=== PATIENT | male | born 1990 | race Caucasian/White ===

== ENCOUNTER → 2016-12-18 12:28 | Emergency (ER) | payer BC ==
[~2016-12-18 12:28] MED LIST: Silver Sulfadiazine 1%* 20 GM TOPICAL ONE; Tetan/Diph/Pertus SYR(Tdap)* 0.5 ML SYR(BOOSTRIX) use SYR IM ONE
[2016-12-18 13:09] VITALS: BP 148/88
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
== END | disposition home or self-care (01) ==
LOC: ED 12:28
DX: T22.012A Burn of unspecified degree of left forearm, initial encounter (principal); M79.602 Pain in left arm; X12.XXXA Contact with other hot fluids, initial encounter; Y93.9 Activity, unspecified; Y92.9 Unspecified place or not applicable
CPT/HCPCS: 90715; 99282; A9270-GY

== ENCOUNTER 2017-10-13 21:32 | Emergency (ER) | payer BC, OTHER ==
[2017-10-13 21:40] VITALS: BP 119/75
[2017-10-13] MEDS ORDERED: DOXYcycline CAP(*) 100 MG PO ONE (22:23)
--- NOTE | 2017-10-13 22:23 | UC ---
Skin Complaint HPI - HPI Summary HPI Summary: 27 y/o male presents to the urgent care c/o tick bite in his Rt lower abdomen this afternoon about 6 hrs ago. Pt reports he removed the tick, but he doesn't know how long the tick has been on his abdomen. Mild redness around the tick bite. Pt denies fever, CRAWFORD, SOB, chest pain, abdominal pain, joint pain, N/V/D. - History of Current Complaint Chief Complaint: UCSkin Time Seen by Provider: 10/13/17 22:09 Stated Complaint: TICK BITE Hx Obtained From: Patient Onset/Duration: Sudden Onset, Lasting Hours - 6 hrs ago Skin Exposure Onset/Duration: Hours Ago - 6hrs ago Onset Severity: Mild Current Severity: Mild Pain Intensity: 0 Pain Scale Used: 0-10 Numeric Location: Discrete - Rt lower adomen w/ tick bite Character: Redness Aggravating Factor(s): Touch Alleviating Factor(s): Other - remove tick Associated Signs & Symptoms: Positive: Rash. Negative: Fever, Chills, Tenderness Related History: Possible Reaction to: Insect - Allergy/Home Medications Allergies/Adverse Reactions: Allergies Allergy/AdvReac Type Severity Reaction Status Date / Time Penicillins Allergy Unknown Verified 10/13/17 21:41 Reaction Details Home Medications: Home Medications NK [No Home Medications Reported] 10/13/17 [History Confirmed 10/13/17] Review of Systems Constitutional: Negative Skin: Rash - Rt lower abdomen w/ tick bite Eyes: Negative ENT: Negative Respiratory: Negative Cardiovascular: Negative Gastrointestinal: Negative Genitourinary: Negative Motor: Negative Neurovascular: Negative Musculoskeletal: Negative Neurological: Negative Psychological: Negative Is Patient Immunocompromised?: No All Other Systems Reviewed And Are Negative: Yes PMH/Surg Hx/FS Hx/Imm Hx Previously Healthy: Yes - Pt denies PMHX - Surgical History Surgical History: None - Family History Known Family History: Positive: Hypertension - grandmother Family History: [place] (grandfather) - Social History Occupation: Employed Full-time Lives: With Family Alcohol Use: Occasionally Substance Use Type: None Smoking Status (MU): Never Smoked Tobacco Type: Smokeless Tobacco Amount Used/How Often: 1 can per day - Immunization History Most Recent Tetanus Shot: not sure Physical Exam - Summary Physical Exam Summary: Vital Signs Reviewed: Yes General: well developed, well nourished male sitting in the examining table w/o any apparent distress. Eyes: Positive: Conjunctiva Clear - PERRLA, EOMI ENT: Positive: Normal ENT inspection, Hearing grossly normal, Pharynx normal, TMs normal Neck: Positive: Supple, Nontender, No Lymphadenopathy Respiratory: Positive: Chest nontender, Lungs clear, Normal breath sounds Cardiovascular: Positive: RRR, No Murmur, Pulses Normal Abdomen Description: Positive: Nontender, No Organomegaly, Soft. Negative: CVA Tenderness (R), CVA Tenderness (L) Bowel Sounds: Positive: Present Musculoskeletal: Positive: Strength Intact, ROM Intact, No Edema Neurological Exam: Normal Psychological Exam: Normal Skin: Positive: rashes - RT lower abdomen w/ a tick bite with surrounding erythema , non tender to palpation. tick no longer present, no swelling or drainage observed. Triage Information Reviewed: Yes Vital Signs: Initial Vital Signs Temp 98.2 F 10/13/17 21:38 Pulse 112 10/13/17 21:38 Resp 18 10/13/17 21:38 BP 119/75 10/13/17 21:38 Pulse Ox 96 10/13/17 21:38 Course/Dx - Course Course Of Treatment: 27 y/o male presents to the urgent care c/o tick bite in his Rt lower abdomen this afternoon about 6 hrs ago. Pt reports he removed the tick, but he doesn't know how long the tick has been on his abdomen. Mild redness around the tick bite. Pt denies fever, CRA[place]ORD, SOB, chest pain, abdominal pain, joint pain, N/V/D.Hx obtained. Pt w/RT lower abdomen w/ a tick bite with surrounding erythema , non tender to palpation. tick no longer present, no swelling or drainage observed on examination. Area cleaned w. alcohol swab. Antibiotic prophylaxis with Doxycycline given to the patient to prevent lyme Disease.. Pt tolerated well medication. Pt advised to observe the area for the development or Erythema Migrans for upto 30 days following exposure. Advised if he develops fever or erythema Migrans to return to the clinic or PCP for further treatment. D/c instructions explained. Pt understood and agreed with plan of care. - Differential Diagnoses - Skin Complaint Differential Diagnoses: Cellulitis, Local Allergic Reaction, MRSA, Tick Born Illness, Other - insect bite, bee sting - Diagnoses Provider Diagnoses: 1- Lower abdomen w/ tick bite Discharge - Sign-Out/Discharge Documenting (check all that apply): Discharge/Admit/Transfer - D/C home - Discharge Plan Condition: Stable Disposition: HOME Patient Education Materials: Tick Bite (ED) Referrals: Tiago Ward MD [Primary Care Provider] - 2 Weeks Yaz MCGUIRE,Murtaza Marino [Medical Doctor] - If Needed Additional Instructions: 1- Please observe the area for the development or Erythema Migrans for upto 30 days following exposure. Components of the tick saliva can cause transient erythema that should not be confused with Erythema Migrans. If you develop the bull's eye rash, fever, joint pains please return to the urgent care or f/u with your PCP for further management. 2-Antibiotic prophylaxis with Doxycycline was given to you today to prevent lyme Disease. Lyme serology can be drawn in 2 weeks with your PCP to r/o Lyme disease since there is probability of negative results at early exposure. - Billing Disposition and Condition Condition: STABLE Disposition: HOME
== END 2017-10-13 22:40 | disposition home or self-care (01) ==
LOC: UCEAST 21:32
DX: S30.861A Insect bite (nonvenomous) of abdominal wall, initial encounter (principal); W57.XXXA Bitten or stung by nonvenomous insect and other nonvenomous arthropods, initial encounter; Y93.9 Activity, unspecified; Y92.9 Unspecified place or not applicable; Z88.0 Allergy status to penicillin
CPT/HCPCS: 99212; A9270-GY; G0463

== ENCOUNTER 2018-10-29 20:14 | Emergency (ER) | payer SELFPAY ==
[2018-10-30 00:01] LABS: Urine Appearance Cloudy; Urine Bacteria 1+ (Absent); Urine Bilirubin Negative (Negative); Urine Blood Negative (Negative); Urine Color Yellow; Urine Glucose Negative (Negative); Urine Ketones Negative (Negative); Urine Nitrite Negative (Negative); Urine Protein Negative (Negative); Urine Red Blood Cell Absent (Absent); Urine Specific Gravity 1.019 (1.010-1.030); Urine Squamous Epithelial Cell Present (Absent); Urine Urobilinogen Negative (Negative); Urine White Blood Cell Trace(0-5/hpf) (Absent)
--- NOTE | 2018-10-30 00:14 | ED ---
Complex/Multi-Sys Presentation - HPI Summary HPI Summary: Patient is a 28 y/o M presenting to ED with complaints of left flank/left lower back pain onsetting in the morning, 10/28/18. Pain is described as sharp and progressively worsened since onset. He denies any injuries and Hx of kidney stones. Urinary Sx are denied. He notes that movement aggravates Sx. On triage, pain is rated 5/10. Home medications and allergies are reviewed. - History Of Current Complaint Chief Complaint: EDBackInjuryPain Time Seen by Provider: 10/30/18 00:04 Hx Obtained From: Patient Onset/Duration: Lasting Days - morning, 10/28/18., Still Present Timing: Constant, Days - morning, 10/28/18. Severity Currently: Mild Severity Initially: Moderate Location: Pain At: - left flank/lower back Aggravating Factor(s): movement Alleviating Factor(s): nothing Associated Signs And Symptoms: Positive: Back Pain - LEFT LOWER BACK/LEFT FLANK PAIN, Other - NEGATIVE - URINARY SX - Allergies/Home Medications Allergies/Adverse Reactions: Allergies Allergy/AdvReac Type Severity Reaction Status Date / Time Penicillins Allergy Unknown Verified 10/13/17 21:41 Reaction Details PMH/Surg Hx/FS Hx/Imm Hx Endocrine/Hematology History: Denies: Hx Diabetes Cardiovascular History: Denies: Hx Coronary Artery Disease, Hx Hypertension Infectious Disease History: No Infectious Disease History: Denies: Hx Clostridium Difficile, Hx Hepatitis, Hx Human Immunodeficiency Virus (HIV), Hx of Known/Suspected MRSA, Hx Shingles, Hx Tuberculosis, Hx Known/ Suspected VRE, Hx Known/Suspected VRSA, History Other Infectious Disease, Traveled Outside the [place] in Last 30 Days - Family History Known Family History: Positive: Hypertension - grandmother, Other - [place] ( grandfather) Family History: [place] (grandfather) - Social History Alcohol Use: Occasionally Substance Use Type: Reports: None Smoking Status (MU): Never Smoked Tobacco Type: Smokeless Tobacco Amount Used/How Often: 1 can per day Review of Systems Positive: no symptoms reported - NO URINARY SX REPORTED , flank pain - LEFT FLANK Musculoskeletal: Other - POSITIVE - LEFT LOWER BACK PAIN All Other Systems Reviewed And Are Negative: Yes Physical Exam - Summary Physical Exam Summary: Appearance: Well-appearing, Well-nourished, lying in bed comfortably Skin: Warm, dry, no obvious rash Eyes: sclera anicteric, no conjunctival pallor ENT: mucous membranes moist, pharynx appears normal Neck: Supple, nontender Respiratory: Clear to auscultation, no signs of respiratory distress Cardiovascular: Normal S1, S2. No murmurs. Normal distal pulses in tibial and radial bilaterally. Abdomen: Soft, nontender, normal active bowel sounds present Musculoskeletal: Left-sided paravertebral muscle tenderness in lower back; Strength/ROM Intact Neurological: A&Ox3, awake and alert, mentation is normal, speech is fluent and appropriate Psychiatric: affect is normal, does not appear anxious or depressed Triage Information Reviewed: Yes Vital Signs On Initial Exam: Initial Vitals Temp Pulse Resp BP Pulse Ox 98.7 F 74 18 156/83 98 10/29/18 20:16 10/29/18 20:16 10/29/18 20:16 10/29/18 20:16 10/29/18 20:16 Vital Signs Reviewed: Yes Diagnostics - Vital Signs Vital Signs Temp Pulse Resp BP Pulse Ox 10/29/18 22:34 98 F 52 18 135/79 98 10/29/18 20:16 98.7 F 74 18 156/83 98 - Laboratory Lab Results: Lab Results 10/29/18 Range/Units 23:51 Urine Color Yellow Urine Appearance Cloudy Urine pH 6.0 (5-9) Ur Specific [place] 1.019 (1.010-1.030) Urine Protein Negative (Negative) Urine Ketones Negative (Negative) Urine Blood Negative (Negative) Urine Nitrate Negative (Negative) Urine Bilirubin Negative (Negative) Urine Urobilinogen Negative (Negative) Ur Leukocyte Esterase Trace A (Negative) Urine WBC (Auto) Trace(0-5/hpf) (Absent) Urine RBC (Auto) Absent (Absent) Ur Squamous Epith Cells Present A (Absent) Urine Bacteria 1+ A (Absent) Urine Glucose Negative (Negative) Urine Ascorbic Acid * A (Negative) Lab Statement: Any lab studies that have been ordered have been reviewed, and results considered in the medical decision making process. Re-Evaluation - Re-Evaluation First Eval Re-Evaluation Time: 01:10 Comment: UA results and possible causes of Sx were discussed, patient will be discharged to home, he is agreeable with this. Complex Multi-Symp Course/Dx Course Of Treatment: Patient is a 28 y/o M presenting to ED with complaints of left flank/left lower back pain onsetting in the morning, 10/28/18. Pain is described as sharp and progressively worsened since onset. He denies any injuries and Hx of kidney stones. Urinary Sx are denied. He notes that movement aggravates Sx. On physical exam, Left-sided paravertebral muscle tenderness in lower back. UA showed trace leukocyte esterase, trace WBC, squamous epith cells present, 1+ baceteria, ascorbic acid present. UA results and possible causes of Sx were discussed, patient will be discharged to home, he is agreeable with this. - Diagnoses Provider Diagnoses: Mechanical back pain Discharge - Sign-Out/Discharge Documenting (check all that apply): Patient Departure - discharge Patient Received Moderate/Deep Sedation with Procedure: No - Discharge Plan Condition: Good Disposition: HOME Patient Education Materials: Back Pain (ED) Referrals: Tiago Ward MD [Primary Care Provider] - 3 Days (if not better) Additional Instructions: The urine test did not show any problem related to the kidney. I think the pain is coming from one of the muscle groups in the low back. - Billing Disposition and Condition Condition: GOOD Disposition: Home - Attestation Statements Document Initiated by Terri: Yes Documenting Scribe: ANNA GLOVER Provider For Whom Terri is Documenting (Include Credential): ANTONIO KNIGHT MD Scribe Attestation: I, ANNA GLOVER, scribed for ANTONIO KNIGHT MD on 10/31/18 at 0500. Scribe Documentation Reviewed: Yes Provider Attestation: The documentation as recorded by the ANNA sanchez accurately reflects the service I personally performed and the decisions made by me, ANTONIO KNIGHT MD Status of Scribe Document: Viewed
[2018-10-30 01:24] VITALS: BP 127/64
== END 2018-10-30 01:23 | disposition home or self-care (01) ==
LOC: ED 20:14
DX: M54.5 Low back pain (principal); R10.32 Left lower quadrant pain; Z88.0 Allergy status to penicillin; F17.220 Nicotine dependence, chewing tobacco, uncomplicated
CPT/HCPCS: 81003; 81015; 87086; 99282

== ENCOUNTER 2018-12-20 20:50 | Emergency (ER) | payer SELFPAY ==
[2018-12-20 20:57] VITALS: BP 127/67
--- NOTE | 2018-12-20 20:59 | UC ---
Hand/Wrist HPI - HPI Summary HPI Summary: 28-year-old male comes in with a chief complaint of left hand pain. Pain started 2 days ago when he fell while playing softball landing on his left hand. Pain is primarily in the dorsum of the hand over the third fourth and fifth metacarpals. He is able to move his fingers denies any weakness or numbness. No skin break. Denies any wrist pain. - History Of Current Complaint Chief Complaint: UCUpperExtremity Stated Complaint: L HAND INJURY Time Seen by Provider: 12/20/18 20:57 Pain Intensity: 2 - Allergies/Home Medications Allergies/Adverse Reactions: Allergies Allergy/AdvReac Type Severity Reaction Status Date / Time Penicillins Allergy Unknown Verified 12/20/18 20:58 Reaction Details Home Medications: Home Medications Ibuprofen TAB* [Advil TAB*] 800 mg PO ONCE PRN 12/20/18 [History Confirmed 12/20] PMH/Surg Hx/FS Hx/Imm Hx Previously Healthy: Yes - Surgical History Surgical History: None - Family History Known Family History: Positive: Unknown, Hypertension - grandmother, Other - [place] (grandfather) Family History: [place] (grandfather) - Social History Alcohol Use: Occasionally Substance Use Type: None Smoking Status (MU): Never Smoked Tobacco Type: Smokeless Tobacco Amount Used/How Often: 1 can per day - Immunization History Most Recent Tetanus Shot: not sure Review of Systems All Other Systems Reviewed And Are Negative: Yes Constitutional: Positive: Negative Skin: Positive: Bruising - dorsum lt hand Eyes: Positive: Negative ENT: Positive: Negative Respiratory: Positive: Negative Cardiovascular: Positive: Negative Gastrointestinal: Positive: Negative Motor: Positive: Other - see hpi Neurovascular: Positive: Negative Musculoskeletal: Positive: Other: - see hpi Neurological: Positive: Negative Psychological: Positive: Negative Is Patient Immunocompromised?: No Physical Exam Triage Information Reviewed: Yes Appearance: Well-Appearing, No Pain Distress, Well-Nourished Vital Signs: Initial Vital Signs Temp 98.5 F 12/20/18 20:53 Pulse 77 12/20/18 20:53 Resp 16 12/20/18 20:53 BP 127/67 12/20/18 20:53 Pulse Ox 98 12/20/18 20:53 Vital Signs Reviewed: Yes Eye Exam: Normal Eyes: Positive: Conjunctiva Clear Neck: Positive: Supple Respiratory: Positive: No respiratory distress Musculoskeletal: Positive: Other: - The left hand is tender to palpation on the dorsum over the third fourth and fifth metacarpals. The wrist and fingers have full range of motion and are nontender. No sensation deficits normal capillary refill. There is swelling on the dorsum. Neurological: Positive: Alert, Muscle Tone Normal Psychological Exam: Normal Psychological: Positive: Normal Response To Family, Age Appropriate Behavior Skin: Positive: Other - eccymosis dorsum of left hand Hand/Wrist Course/Dx - Course Course Of Treatment: I discussed the x-rays with the patient and his partner. I do not see a fracture radiologist reading is pending. Patient was placed in a cock-up splint by nursing he was neurovascular intact after placement of cock-up splint. The plan is ice anti-inflammatories immobilization. If the radiologist sees fracture leading to follow-up with orthopedics. If there is no fracture and he still needs follow-up will be with sports medicine or orthopedics. - Differential Dx/Diagnosis Provider Diagnosis: Left hand pain Discharge - Sign-Out/Discharge Documenting (check all that apply): Patient Departure All imaging exams completed and their final reports reviewed: No - Discharge Plan Condition: Stable Disposition: HOME Patient Education Materials: Hand Sprain (ED) Referrals: Tiago Ward MD [Primary Care Provider] - [facility] [Provider Group] Roderick Vargas MD [Medical Doctor] - Additional Instructions: FOLLOW UP WITH ORTHOPEDICS IF THE RADIOLOGIST FINDS A FRACTURE WHEN READING THE X-RAYS TOMORROW. IF NO FRACTURE IS SEEN, FOLLOW UP WITH ORTHOPEDICS OR SPORTS MEDICINE IF NOT COMPLETELY IMPROVED. GET RECHECKED SOONER IF YOUR CONDITION WORSENS OR ANY QUESTIONS OR CONCERNS. - Billing Disposition and Condition Condition: STABLE Disposition: Home
== END 2018-12-20 21:30 | disposition home or self-care (01) ==
LOC: UCEAST 20:50
DX: M79.642 Pain in left hand (principal); F17.220 Nicotine dependence, chewing tobacco, uncomplicated; Z88.0 Allergy status to penicillin
CPT/HCPCS: 99211; G0463

== ENCOUNTER 2019-03-30 16:32 | Emergency (ER) | payer OTHER ==
--- NOTE | 2019-03-30 16:34 | UC ---
Headache HPI - HPI Summary HPI Summary: 29 yo male presents with headache. He tells me that about 5 days ago he developed a mild headache that has significantly worsened. Today his headache became severe and is the worst he has ever had. He is photophobic and his headache worsens when bending forward. Feels nauseous, but has no vomiting. He feels tingling and weakness in his arms and legs. He has not taken anything OTC for his symptoms. Denies fever, chills, SOB, chest pain, abdominal pain, sore throat, dysuria, back pain, or neck pain. - History Of Current Complaint Stated Complaint: HEADACHE Time Seen by Provider: 03/30/19 16:34 Hx Obtained From: Patient, Family/Mortgage Loan Funder Onset/Duration: Gradual Onset Initially Headache Was: "Worst Headache Ever" - Allergies/Home Medications Allergies/Adverse Reactions: Allergies Allergy/AdvReac Type Severity Reaction Status Date / Time Penicillins Allergy Unknown Verified 03/30/19 17:42 Reaction Details PMH/Surg Hx/FS Hx/Imm Hx - Additional Past Medical History Additional PMH: None - Surgical History Surgical History: None - Family History Known Family History: Positive: Unknown, Hypertension - grandmother, Other - [place] (grandfather) Family History: [place] (grandfather) - Social History Occupation: Employed Full-time Lives: With Family Alcohol Use: Occasionally Substance Use Type: None Smoking Status (MU): Never Smoked Tobacco Type: Smokeless Tobacco Amount Used/How Often: 1 can per day - Immunization History Most Recent Tetanus Shot: not sure Review of Systems All Other Systems Reviewed And Are Negative: No Constitutional: Positive: Fever Skin: Positive: Negative Eyes: Positive: Negative ENT: Positive: Negative Respiratory: Positive: Negative Cardiovascular: Positive: Negative Gastrointestinal: Positive: Nausea Genitourinary: Positive: Negative Motor: Positive: Negative Neurovascular: Positive: Negative Musculoskeletal: Positive: Negative Neurological: Positive: Headache, Weakness Psychological: Positive: Negative Physical Exam - Summary Physical Exam Summary: GENERAL: Hyperventilating. SKIN: No rashes, sores, or open wounds. HEENT: Head: AT/NC. No meningismus Eyes: PERRLA. EOM intact. Conjunctiva clear without inflammation or discharge. Ears: Hearing grossly normal. TMs intact, no bulging, erythema, or edema. Nose: Nasal mucosa pink and moist. NTTP maxillary and frontal sinus. Throat: Posterior oropharynx without exudates, erythema, or tonsillar enlargement. Uvula midline. NECK: Supple. Nontender. No lymphadenopathy. CHEST: CTAB. No r/r/w. No accessory muscle use. Breathing comfortably and in no distress. CV: RRR. Pulses intact. Brisk cap refill. ABDOMEN: Soft. NTTP. No distention or guarding. No CVA tenderness. Bowel sounds present MSK: Decreased strength b/l UEs and LEs throughout. Neuro: A&Ox3. 3 word recall, remote, recent memory, ability to follow 2-step directions, and attention intact. CN: II: Peripheral fry intact. Vision normal. III, IV, : EOMI. No nystagmus. PERRLA. V: Sensations intact and symmetric. Opens mouth and clenches teeth. VII: No facial asymmetry. Forehead wrinkles. Grins, shuts eyes, frowns, puffs cheeks. VIII: Hearing intact to finger rub. IX, X: Swallows and coughs. Uvula midline. XI: Shrugs shoulders. Turns head against resistance. XII: No tongue deviation [id number] are intact. Normal speech. No facial drooping PSYCH: Age appropriate behavior. Triage Information Reviewed: Yes Vital Signs: Vital Signs: Temp Pulse Resp BP Pulse Ox 103.3 F 82 18 129/75 100 03/30/19 16:47 03/30/19 16:47 03/30/19 16:47 03/30/19 16:47 03/30/19 16:47 Laboratory Tests 03/30/19 03/30/19 16:57 17:04 POC Glucose (mg/dL) 58 L Influenza A (Rapid) Negative Influenza B (Rapid) Negative Vital Signs Reviewed: Yes Diagnostics - EKG EKG Comparison: Other Summary of EKG Findings: 83bpm NSR. No STEMI as read by Dr. Stringer Headache Course/Dx - Course Course Of Treatment: Given his sudden onset of worst headache ever with fever and photophobia - I recommended pt be transferred to the ED for further evaluation. At this time he has no meningimus, but certainly is within the ddx. He was agreeable to this. He left via EMS in stable condition. Report called to Yuni in the ED. - Differential Dx/Diagnosis Provider Diagnosis: Headache, Fever Discharge ED - Sign-Out/Discharge Documenting (check all that apply): Patient Departure All imaging exams completed and their final reports reviewed: No Studies - Discharge Plan Condition: Stable Disposition: TRANS HIGHER LVL OF CARE FAC Referrals: Tiago Ward MD [Primary Care Provider] - - Billing Disposition and Condition Condition: STABLE Disposition: Trans Higher Lvl of Care Fac - Attestation Statements Provider Attestation: Per institutional requirements, I have reviewed the chart, however, I was not consulted specifically or made aware of this patient by the midlevel provider. I did not personally evaluate, interact with , or disposition this patient.
[2019-03-30] MEDS ORDERED: NS 0.9% 1000 ML** 1,000 ML IV ONE (16:46)
[2019-03-30 16:52] VITALS: BP 129/75
[2019-03-30 17:18] LABS: Influenza A Molecular NEGATIVE (Negative); Influenza B Molecular NEGATIVE (Negative)
== END 2019-03-30 17:10 | disposition short-term general hospital (02) ==
LOC: UCEAST 16:32
DX: R51 Headache (principal); H53.149 Visual discomfort, unspecified; R50.9 Fever, unspecified; R11.0 Nausea; Z88.0 Allergy status to penicillin
CPT/HCPCS: 99213; G0463

== ENCOUNTER 2019-03-30 17:29 | Emergency (ER) | payer OTHER ==
[2019-03-30] MEDS ORDERED: NS 0.9% 1000 ML** 3,000 ML IV ONE (17:55)
[2019-03-30] MEDS ORDERED: Vancomycin(*) 1,000 MG in NS 0.9% 250 ML* 250 ML IVPB ONE (17:55)
[2019-03-30] MEDS ORDERED: cefTRIAXone(*) 2 GM in NS 0.9% 100 ML* 100 ML IVPB ONE (17:55)
--- NOTE | 2019-03-30 18:01 | ED ---
Headache - HPI Summary HPI Summary: Pt is a 29 y/o M presenting to the ED via EMS for a chief complaint of diffuse CRAWFORD that has worsened over the last 3 days. Pt is present with his girlfriend and several family members. Pt was seen at [facility] and had an influenza swab with negative findings on 03/30/19. Pt describes the CRAWFORD as pounding. Pts family also reports that pt has generalized body aches, nausea when bending down , generalized weakness, fever, and numbness and paresthesia in the bilateral LE and bilateral UE. Pt reports fatigue and photophobia. One week ago, pt had nasal congestion that has since resolved. Pt denies any chills, erythema of eyes , sore throat, CP, SOB, cough, abdominal pain, vomiting, changes in bowel movements, neck pain, neck stiffness, dysuria, hematuria, edema, rash, or dizziness. Pts family states that the pt has not eaten since the night of 03/29. Pt has taken Tylenol and Motrin without relief. Pts son had a viral infection recently with different symptoms from what the pt is experiencing. Pt had two ticks that pt removed within the last week. Pt works outdoors and goes hunting. Pt takes occasional ibuprofen for pain. Pt has a SHx of using chewing tobacco which pt stopped using 03/10/19. Pt occasionally drinks alcohol. Pt denies any PMHx, PSHx, or any medications. - History Of Current Complaint Chief Complaint: EDHeadache Stated Complaint: SEVERE HEADACHE PER MOM/EMS Time Seen by Provider: 03/30/19 17:45 Hx Obtained From: Patient, Family/[employer] - Girlfriend and several family members Onset/Duration: Sudden Onset, Started days ago, Still Present Initially Headache Was: Moderate Currently Pain Is: Moderate Timing: Constant, Days Location of Headache: Diffuse Aggravating Factor: Nothing Allevating Factors: Nothing Associated Signs And Symptoms: Nausea - When bending down, Fever - Allergies/Home Medications Allergies/Adverse Reactions: Allergies Allergy/AdvReac Type Severity Reaction Status Date / Time Penicillins Allergy Unknown Verified 03/30/19 17:42 Reaction Details PMH/Surg Hx/FS Hx/Imm Hx Previously Healthy: Yes Endocrine/Hematology History: Denies: Hx Diabetes Cardiovascular History: Denies: Hx Coronary Artery Disease, Hx Hypertension Sensory History: Denies: Hx Legally Blind, Hx Deafness Opthamlomology History: Denies: Hx Legally Blind EENT History: Denies: Hx Deafness - Surgical History Surgical History: None Surgery Procedure, Year, and Place: None Infectious Disease History: No Infectious Disease History: Denies: Hx Clostridium Difficile, Hx Hepatitis, Hx Human Immunodeficiency Virus (HIV), Hx of Known/Suspected MRSA, Hx Shingles, Hx Tuberculosis, Hx Known/ Suspected VRE, Hx Known/Suspected VRSA, History Other Infectious Disease, Traveled Outside the [place] in Last 30 Days - Family History Known Family History: Positive: Hypertension - grandmother, Other - [place] ( grandfather) Family History: [place] (grandfather) - Social History Alcohol Use: Occasionally Hx Substance Use: No Substance Use Type: Reports: None Hx Tobacco Use: Yes Smoking Status (MU): Never Smoked Tobacco Type: Smokeless Tobacco - Chewing tobacco, quit 03/10/19 Amount Used/How Often: 1 can per day Review of Systems Positive: Fever, Fatigue. Negative: Chills Positive: Photophobia. Negative: Erythema Positive: Other - Nasal discharge, resolved. Negative: Sore Throat Negative: Chest Pain Negative: Shortness Of Breath, Cough Positive: Nausea, Other - Negative change in bowel movements. Negative: Abdominal Pain, Vomiting Negative: dysuria, hematuria Positive: Myalgia - Generalized body aches, Other - Negative neck stiffness. Negative: Arthralgia - Negative neck pain, Edema Negative: Rash Neurological: Other - Negative dizziness Positive: Headache, Weakness - Generalized, Paresthesia - Bilateral UE and bilateral LE, Numbness - Bilateral UE and bilateral LE All Other Systems Reviewed And Are Negative: Yes Physical Exam - Summary Physical Exam Summary: Constitutional: Well-developed, Well-nourished, Alert. (-) Distressed. Somnolent refuses to open his eyes, hot to the touch. Skin: Warm, Dry HENT: Normocephalic; Atraumatic. Reports photophobia. Eyes: Conjunctiva normal Neck: Musculoskeletal ROM normal neck. (-) JVD, (-) Stridor, (-) Tracheal deviation. Pain with neck flexion. Cardio: Rhythm regular, rate normal, Heart sounds normal; Intact distal pulses; The pedal pulses are 2+ and symmetric. Radial pulses are 2+ and symmetric. (-) Murmur Pulmonary/Chest wall: Effort normal. (-) Respiratory distress, (-) Wheezes, (-) Rales Abd: Soft, (-) tenderness, (-) Distension, (-) Guarding, (-) Rebound Musculoskeletal: (-) Edema. Lymph: (-) Cervical adenopathy Neuro: Alert, Oriented x3 Psych: Mood and affect Normal Triage Information Reviewed: Yes Vital Signs On Initial Exam: Initial Vitals Temp Pulse Resp BP Pulse Ox 100.8 F 77 26 130/79 99 03/30/19 17:38 03/30/19 17:38 03/30/19 17:38 03/30/19 17:38 03/30/19 17:38 Vital Signs Reviewed: Yes - Hanh Coma Scale Best Eye Response: 3 - To Speech Best Motor Response: 6 - Obeys Commands Best Verbal Response: 5 - Oriented Coma Scale Total: 14 Procedures - Sedation Patient Received Moderate/Deep Sedation with Procedure: No - Lumbar Puncture Midline Position: Lateral Decubitus Aseptic Technique: Lidocaine - 5 ml Anesthesia Used: 1.0% Lido Spinal Needle Used: 22 Gauge - 3.5 in Lumbar Puncture Note: Total of 8 mls of clear fluid was obtained. Diagnostics - Vital Signs Vital Signs Temp Pulse Resp BP Pulse Ox 03/30/19 17:38 100.8 F 77 26 130/79 99 - Laboratory Result Diagrams: 03/30/19 18:21 03/30/19 18:21 Lab Statement: Any lab studies that have been ordered have been reviewed, and results considered in the medical decision making process. - CT Brain CT CT Interpretation Completed By: ED Physician Summary of CT Findings: Brain CT IMPRESSION: no acute findings. Reviewed and interpreted by ED physician, pending official radiology report. Re-Evaluation - Re-Evaluation First Eval Re-Evaluation Time: 21:06 Comment: CSF results were discussed with the patient. Patient was discharged to home and will follow up in 1-3 days with PCP. He was advised to take Tylenol and ibuprofen and drink plenty of fluids for Sx. He is agreeable with this. Headache Course/Dx - Course Course Of Treatment: Pt is a 29 y/o M presenting to the ED via EMS for a chief complaint of diffuse CRAWFORD that has worsened over the last 3 days. Pt is present with his girlfriend and several family members. Pt was seen at [facility] and had an influenza swab with negative findings on 03/30/19. Pt describes the CRAWFORD as pounding. Pts family also reports that pt has generalized body aches, nausea when bending down, generalized weakness, fever, and numbness and paresthesia in the bilateral LE and bilateral UE. Pt reports fatigue and photophobia. One week ago, pt had nasal congestion that has since resolved. Pt denies any chills, erythema of eyes, sore throat, CP, SOB, cough, abdominal pain , vomiting, changes in bowel movements, neck pain, neck stiffness, dysuria, hematuria, edema, rash, or dizziness. Pts family states that the pt has not eaten since the night of 03/29/19. Pt has taken Tylenol and Motrin without relief. Pts son had a viral infection recently with different symptoms from what the pt is experiencing. Pt had two ticks that pt removed within the last week. Pt works outdoors and goes hunting. Pt takes occasional ibuprofen for pain. Pt has a SHx of using chewing tobacco which pt stopped using 03/10/19. Pt occasionally drinks alcohol. Pt denies any PMHx, PSHx, or any medications. On exam, pt is somnolent refuses to open his eyes, reports photophobia, pain with neck flexion, hot to the touch. Recent tick exposures, considered Lyme disease and meningitis. Viral exposures at home, could be viral meningitis. His mentation is rather poor. In the ED course, pt was given acyclovir 800 mg IVPB , vancomycin 1000 mg IVPB, acetaminophen 975 mg PO, and fluids. Laboratory abnormal findings: plt count 132, absolute lymphs 0.5, INR 1.12. Brain CT IMPRESSION: no acute findings. Lumbar Puncture Procedure: midline at lateral decubitus using 1.0 % lidocaine and a 22 gauge needle. 8 mls of clear fluid was obtained. Pt will be signed out to Dr. Neha Luke at 19:00 on 03/30/19 at shift change. Follow up with [facility] and reevaluate as needed. - Diagnoses Provider Diagnoses: Viral illness, Headache, Elevated LFTs Discharge ED - Sign-Out/Discharge Documenting (check all that apply): Sign-Out Patient Signing out patient TO: Neha Luke - 19:00 on 03/30/19 - Discharge Plan Condition: Stable Disposition: HOME Patient Education Materials: Acute Headache (ED), Viral Syndrome (ED) Referrals: Tiago Ward MD [Primary Care Provider] - 3 Days Additional Instructions: TAKE TYLENOL AND IBUPROFEN AND DRINK PLENTY OF FLUIDS. PLEASE RETURN TO ED FOR ANY NEW OR CONCERNING SYMPTOMS. FOLLOW UP WITH YOUR PRIMARY CARE PHYSICIAN WITHIN 1-3 DAYS WITH REGARDS TO YOUR SYMPTOMS AND ELEVATED LFTs. - Billing Disposition and Condition Condition: STABLE Disposition: Home - Attestation Statements Document Initiated by Scribe: Yes Documenting Scribe: Anais Simon Provider For Whom Tammiibe is Documenting (Include Credential): Teodoro Gee MD Scribe Attestation: Anais Bauer, scribed for Teodoro Gee MD on 04/02/19 at 0826. Scribe Documentation Reviewed: Yes Provider Attestation: The documentation as recorded by the Anais sanchez accurately reflects the service I personally performed and the decisions made by Teodoro kang MD Status of Scribe Document: Viewed
[2019-03-30] MEDS ORDERED: Morphine 4 MG/ML VIAL (1 ml) 4 MG/ML VIAL IV ONE (18:07)
[2019-03-30] MEDS ORDERED: Ondansetron INJ* 2 MG/ML VIAL IV ONE (18:07)
[2019-03-30] MEDS ORDERED: Acetaminophen TAB* 325 MG PO ONE (18:08)
[2019-03-30 18:33] LABS: ABS Lymphocytes 0.5 10^3/ul (1.0-4.8); ABS Monocytes 0.3 10^3/ul (0-0.8); ABS Neutrophils 3.3 10^3/ul (1.5-7.7); Hematocrit 44 % (42-52); Hemoglobin 15.6 g/dL (14.0-18.0); Mean Corpuscular HGB Conc 35 g/dL (31-36); Mean Corpuscular Hemoglobin 31 pg (27-31); Mean Corpuscular Volume 88 fL (80-94); Mean Platelet Volume 10.1 fL (7.4-10.4); Nucleated Red Blood Cells % 0.2; Platelet Count 132 10^3/uL (150-450); Red Blood Count 5.02 10^6 /uL (4.18-5.48); Red Cell Distribution Width 13 % (10-15); White Blood Count 4.2 10^3/uL (3.5-10.8)
[2019-03-30 18:40] LABS: Activated Partial Thrombo Time 35.1 seconds (26.0-38.0); INR 1.12 (0.82-1.09)
[2019-03-30] MEDS ORDERED: NS 0.9% IVPB SCH (19:00)
[2019-03-30] MEDS ORDERED: Acyclovir IV(*) 800 MG in NS 0.9% 250 ML* 250 ML IVPB SCH (19:00)
[2019-03-30] MEDS ORDERED: ACYCLOVIR IVPB SCH (19:00)
[2019-03-30] MEDS ORDERED: Acyclovir IV(*) 500 MG/10 ML 100 ML VIAL (500 MG) IVPB SCH (19:00)
[2019-03-30 19:06] LABS: Albumin 4.3 g/dL (3.2-5.2); Albumin/Globulin Ratio 1.7 (1-3); BUN/Creatinine Ratio 11.3 (8-20); EGFR Non-African American 69.4 (>60); Globulin 2.6 g/dL (2-4); Potassium 3.6 mmol/L (3.5-5.0); Total Protein 6.9 g/dL (6.4-8.9)
[2019-03-30 19:11] LABS: Body Fluid Source Cerebral Spinal
--- NOTE | 2019-03-30 19:26 | ED ---
Progress - Progress Note Progress Note: Patient is received as a sign out from Dr. Gee to Dr. Luke at 2100 shift change pending results of CSF analysis. CSF analysis was WNL. Patient was discharged to home and will follow up in 1-3 days with PCP. He is agreeable with this. Re-Evaluation - Re-Evaluation First Eval Re-Evaluation Time: 21:06 Comment: CSF results were discussed with the patient. Patient was discharged to home and will follow up in 1-3 days with PCP. He was advised to take Tylenol and ibuprofen and drink plenty of fluids for Sx. He is agreeable with this. Course/Dx - Course Course Of Treatment: 29-year-old male signed out at change of shift to sd with headache. Lumbar puncture pending. All results essentially negative except for slightly elevated bilirubin, AST, the ALT. patient improved significantly after treatment. Upon discharge patient hasn't no headache. He feels tired. Discharged home with presumed viral illness, headache. Advised plenty of rest. Fluids. Tylenol or ibuprofen. Follow up with PCP. Follow-up sooner for any worsening symptoms. - Diagnoses Provider Diagnoses: Viral illness, Headache, Elevated LFTs Discharge ED - Sign-Out/Discharge Documenting (check all that apply): Patient Departure - discharge - Discharge Plan Condition: Stable Disposition: HOME Patient Education Materials: Acute Headache (ED), Viral Syndrome (ED) Referrals: Tiago Ward MD [Primary Care Provider] - 3 Days Additional Instructions: TAKE TYLENOL AND IBUPROFEN AND DRINK PLENTY OF FLUIDS. PLEASE RETURN TO ED FOR ANY NEW OR CONCERNING SYMPTOMS. FOLLOW UP WITH YOUR PRIMARY CARE PHYSICIAN WITHIN 1-3 DAYS WITH REGARDS TO YOUR SYMPTOMS AND ELEVATED LFTs. - Billing Disposition and Condition Condition: STABLE Disposition: Home - Attestation Statements Document Initiated by Scribe: Yes Documenting Scribe: ANNA LGOVER Provider For Whom Terri is Documenting (Include Credential): MODESTO LUKE MD Scribe Attestation: ANNA Bauer, scribed for MODESTO LUKE MD on 03/30/19 at 2131. Scribe Documentation Reviewed: Yes Provider Attestation: The documentation as recorded by the ANNA sanchez accurately reflects the service I personally performed and the decisions made by , MODESTO LUKE MD Status of Scribe Document: Viewed
[2019-03-30 19:27] LABS: CSF Glucose 52 mg/dL (40-70)
[2019-03-30] MEDS ORDERED: diPHENhydraMINE IV* 50 MG/ML 1 ml VIAL (BENADRYL) IV ONE (20:06)
[2019-03-30] MEDS ORDERED: Metoclopramide IV* 5 MG/ML 2 ML VIAL IV ONE (20:19)
[2019-03-30 20:43] LABS: Urine Appearance Clear; Urine Bilirubin Negative (Negative); Urine Blood Negative (Negative); Urine Color Yellow; Urine Glucose Negative (Negative); Urine Ketones Trace (Negative); Urine Nitrite Negative (Negative); Urine Protein Negative (Negative); Urine Urobilinogen Positive (Negative)
[2019-03-30] MEDS ORDERED: Ibuprofen TAB* 800 MG PO PRN (21:05)
[2019-03-30 21:34] VITALS: BP 110/60
== END 2019-03-30 21:33 | disposition home or self-care (01) ==
LOC: ED 17:29
DX: R51 Headache (principal); B34.9 Viral infection, unspecified; R79.89 Other specified abnormal findings of blood chemistry; Z87.891 Personal history of nicotine dependence; Z88.0 Allergy status to penicillin
CPT/HCPCS: 36415; 62270; 70450; 80053; 81003; 82945; 83605; 84157; 85025; 85610; 85730; 86618; 87040; 89051; 96365; 96366; 96375; 99283; A9270-GY; J0133; J0696; J1200; J2270; J2405; J2765; J3370